=== PATIENT | female | born 1990 | race Caucasian/White ===

== ENCOUNTER 2020-02-21 16:17 | Emergency (ER) | payer MEDICAID ==
[2020-02-21] MEDS ORDERED: Sodium Chloride 0.9% 1000 ML 1,000 ML IV STA (16:34)
[2020-02-21] MEDS ORDERED: Zofran 4 MG/2 ML VIAL IV ONE (16:34)
[2020-02-21] MEDS ORDERED: TYLENOL 325 MG PO ONE (16:34)
[2020-02-21] MEDS ORDERED: Zofran 4 MG/2 ML VIAL ONE (16:38)
[2020-02-21] MEDS ORDERED: Sodium Chloride 0.9% 1000 ML 1,000 ML ONE (16:39)
[2020-02-21] MEDS ORDERED: TYLENOL 325 MG ONE (16:39)
--- NOTE | 2020-02-21 16:40 | ERPHSYRPT ---
- History of Present Illness Time Seen by Provider: 02/21/20 16:18 Source: patient Exam Limitations: no limitations Patient Subjective Stated Complaint: PT states "I have a horrible headache and my right side has been hurting for the past two day. Now I am nauseated." Triage Nursing Assessment: PT presented alert and oriented X 3, skin pwd. Pt am bulates with an upright steady gait, able to speak in clear full sentences. Pt holding her right flank. Physician History: Patient is here with right lower quadrant pain. Has been going on for 2 days. No falls no trauma. Patient states that she is unsure if she is or not. However, they are not trying to prevent at this point in time. She says been hurting all day. She did drive herself here. Location: RLQ pain Quality: sharp Radiation: into the rest of abdomen Severity: moderate Duration: yesterday Timing: gradual Modifying factors/associated signs and symptoms: No home test tried. Timing/Duration: yesterday Severity: moderate Modifying Factors: Improves With: eating Associated Symptoms: nausea, No vomiting Allergies/Adverse Reactions: No Known Drug Allergies Allergy (Verified 02/21/20 16:30) Hx Tetanus, Diphtheria Vaccination/Date Given: Yes Hx Influenza Vaccination/Date Given: No Hx Pneumococcal Vaccination/Date Given: No Immunizations Up to Date: Yes Travel Risk - International Travel Have you traveled outside of the country in past 3 weeks: No - Coronavirus Screening Are you exhibiting any of the following symptoms?: No Close contact with a COVID-19 positive Pt in past 14-21 Days: No - Review of Systems Constitutional: No Fever, No Chills Eyes: No Symptoms Ears, Nose, & Throat: No Symptoms Respiratory: No Cough, No Dyspnea Cardiac: No Chest Pain, No Edema, No Syncope Abdominal/Gastrointestinal: Abdominal Pain, Nausea, No Vomiting, No Diarrhea Genitourinary Symptoms: No Dysuria Musculoskeletal: No Back Pain, No Neck Pain Skin: No Rash Neurological: No Dizziness, No Focal Weakness, No Sensory Changes Psychological: No Symptoms Endocrine: No Symptoms All Other Systems: Reviewed and Negative - Past Medical History Pertinent Past Medical History: No - Past Surgical History Past Surgical History: No - Social History Smoking Status: Never smoker Exposure to second hand smoke: Yes Drug Use: none Patient Lives Alone: No - Female History Hx Last Menstrual Period: 02/12/2020 Hx Now: (unknown) - Nursing Vital Signs Nursing Vital Signs: Initial Vital Signs Temperature 98.5 F 02/21/20 16:25 Pulse Rate 66 02/21/20 16:25 Respiratory Rate 20 02/21/20 16:25 Blood Pressure 149/77 02/21/20 16:25 O2 Sat by Pulse Oximetry 100 02/21/20 16:25 Pain Scale Pain Intensity 5 - Physical Exam General Appearance: no apparent distress, alert Eye Exam: PERRL/EOMI, eyes nml inspection Ears, Nose, Throat Exam: normal ENT inspection, TMs normal, pharynx normal, moist mucous membranes Neck Exam: normal inspection, non-tender, supple, full range of motion Respiratory Exam: normal breath sounds, lungs clear, No respiratory distress Cardiovascular Exam: regular rate/rhythm, normal heart sounds, normal peripheral pulses Gastrointestinal/Abdomen Exam: soft, normal bowel sounds, tenderness, other (Right lower quadrant tenderness to palpation.), No mass Back Exam: normal inspection, normal range of motion, No CVA tenderness, No vertebral tenderness Extremity Exam: normal inspection, normal range of motion, pelvis stable Neurologic Exam: alert, oriented x 3, cooperative, normal mood/affect, nml cerebellar function, nml station & gait, sensation nml, No motor deficits Skin Exam: normal color, warm, dry, No rash Lymphatic Exam: No adenopathy SpO2: 100 - Course Nursing assessment & vital signs reviewed: Yes EKG Interpreted by Me: Sinus Rhythm (Sinus rhythm, rate of 160, QRS 91, QTc is 400. No obvious ST changes.) Ordered Tests: Active Orders 24 hr Category Date Time Status EKG-ER Only STAT Care 02/21/20 16:34 Active IV Insertion STAT Care 02/21/20 16:34 Active ABDOMEN AND PELVIS W CONTRAST [CT] Stat Exams 02/21/20 17:08 Taken CBC W DIFF Stat Lab 02/21/20 16:40 Completed CMP Stat Lab 02/21/20 16:40 Completed HCG QUALITATIVE,SERUM Stat Lab 02/21/20 16:40 Completed LIPASE Stat Lab 02/21/20 16:40 Completed UA W/RFX UR CULTURE Stat Lab 02/21/20 17:18 Ordered Medication Summary Discontinued Medications Generic Name Dose Route Start Last Admin Trade Name Freq PRN Reason Stop Dose Admin Acetaminophen 975 mg 02/21/20 16:34 02/21/20 16:43 Tylenol 325 Mg PO 02/21/20 16:35 975 mg STAT ONE Administration Acetaminophen Confirm 02/21/20 16:39 Tylenol 325 Mg Administered 02/21/20 16:40 Dose 975 mg .ROUTE .STK-MED ONE Sodium Chloride 1,000 mls @ 999 mls/hr 02/21/20 16:34 02/21/20 17:46 Sodium Chloride 0.9% 1000 Ml IV 02/21/20 17:34 Infused .Q1H1M STA Infusion Sodium Chloride Confirm 02/21/20 16:39 Sodium Chloride 0.9% 1000 Ml Administered 02/21/20 16:40 Dose 1,000 mls @ ud .ROUTE .STK-MED ONE Ondansetron HCl 4 mg 02/21/20 16:34 02/21/20 16:44 Zofran 4 Mg/2 Ml Vial IV 02/21/20 16:35 4 mg STAT ONE Administration Ondansetron HCl Confirm 02/21/20 16:38 Zofran 4 Mg/2 Ml Vial Administered 02/21/20 16:39 Dose 4 mg .ROUTE .STK-MED ONE Lab/Rad Data: Laboratory Result Diagrams 02/21/20 16:40 02/21/20 16:40 Laboratory Results 02/21/20 02/21/20 02/21/20 Range/Units 16:40 16:40 16:40 WBC 11.3 H (4.0-10.5) K/mm3 RBC 4.32 (4.1-5.4) M/mm3 Hgb 13.1 (12.0-16.0) gm/dl Hct 39.8 (35-47) % MCV 92.1 (78-100) fl MCH 30.3 (26-32) pg MCHC 32.9 (32-36) g/dl RDW 13.3 (11.5-14.0) % Plt Count 192 (150-450) K/mm3 MPV 11.7 H (7.5-11.0) fl Gran % 78.9 H (36.0-66.0) % Eos # (Auto) 0.14 (0-0.5) Absolute Lymphs (auto) 1.77 (1.0-4.6) Absolute Monos (auto) 0.45 (0.0-1.3) Lymphocytes % 15.7 L (24.0-44.0) % Monocytes % 4.0 (0.0-12.0) % Eosinophils % 1.2 (0.00-5.0) % Basophils % 0.2 (0.0-0.4) % Absolute Granulocytes 8.87 H (1.4-6.9) Basophils # 0.02 (0-0.4) Sodium 138 (137-145) mmol/L Potassium 4.3 (3.5-5.1) mmol/L Chloride 105 (98-107) mmol/L Carbon Dioxide 26 (22-30) mmol/L Anion Gap 11.1 (5-15) MEQ/L BUN 11 (7-17) mg/dL Creatinine 0.68 (0.52-1.04) mg/dL Estimated GFR > 60.0 ML/MIN Glucose 88 (74-106) mg/dL Calcium 9.5 (8.4-10.2) mg/dL Total Bilirubin 0.40 (0.2-1.3) mg/dL AST 25 (14-36) U/L ALT 15 (0-35) U/L Alkaline Phosphatase 78 (38-126) U/L Serum Total Protein 7.7 (6.3-8.2) g/dL Albumin 4.4 (3.5-5.0) g/dL Lipase 131 (23-300) U/L Serum , Qual NEGATIVE (Negative) - Progress Progress: improved Progress Note: 02/21/20 16:40 differential diagnosis includes kidney stone, compression fracture, infection, UTI, triple AAA - basic labs including: CBC, lipase, CMP, UA, test - insert IV for fluids, pain meds, nausea control - consider imaging: CT ab/pelvis, or U/S 02/21/20 18:[address] scan was obtained. This demonstrated no obvious appendicitis or other changes. Patient may have a left ovarian cyst. However, all of her pain is right-sided. I did discuss possible early appendicitis. She should return to the emergency department for increasing abdominal pain, nausea, vomiting. Also any new or changing symptoms. We will send her home with home Zofran. She should return here should her nausea not improve at any given time. Otherwise, follow-up with PCP for abdominal reexam in 24 to 48 hours. Counseled pt/family regarding: lab results, diagnosis, need for follow-up, rad results - Departure Departure Disposition: Extended Care Facility Clinical Impression: Nausea, Lower abdominal pain Condition: Stable Critical Care Time: No Referrals: INOCENTE OLIVER [Primary Care Provider] - CHADD READ MD [ACTIVE STAFF] - Instructions: [place] Diet Additional Instructions: Return for new or changing symptoms. Prescriptions: Ondansetron ODT 4 MG [Zofran Odt 4 mg] 4 mg PO Q6H PRN PRN #10 tab.rapdis PRN Reason: Vomiting
[2020-02-21 16:48] LABS: Absolute Neutrophil Ct (ANC) 8.87 (1.4-6.9); BASOPHIL % 0.2 % (0.0-0.4); Basophil (Absolute #) 0.02 (0-0.4); Eosinophil % 1.2 % (0.00-5.0); Eosinophil (Absolute #) 0.14 (0-0.5); Hematocrit 39.8 % (35-47); Hemoglobin 13.1 gm/dl (12.0-16.0); Lymphocyte (Absolute #) 1.77 (1.0-4.6); Lymphocytes % 15.7 % (24.0-44.0); Mean Cell Volume 92.1 fl (78-100); Mean Corpuscular Hemoglobin 30.3 pg (26-32); Mean Corpuscular Hgb Concent. 32.9 g/dl (32-36); Mean Platelet Volume 11.7 fl (7.5-11.0); Monocyte (Absolute #) 0.45 (0.0-1.3); Neutrophil % 78.9 % (36.0-66.0); Platelet Count 192 K/mm3 (150-450); Red Blood Count 4.32 M/mm3 (4.1-5.4); Red Cell Distribution Width 13.3 % (11.5-14.0); White Blood Count 11.3 K/mm3 (4.0-10.5)
[2020-02-21 17:00] LABS: ALBUMIN 4.4 g/dL (3.5-5.0); ALKALINE PHOSPHATASE 78 U/L (38-126); ANION GAP 11.1 MEQ/L (5-15); BLOOD UREA NITROGEN 11 mg/dL (7-17); CHLORIDE 105 mmol/L (98-107); Calcium 9.5 mg/dL (8.4-10.2); Carbon Dioxide 26 mmol/L (22-30); Creatinine 1 0.68 mg/dL (0.52-1.04); EST GLOMERULAR FILTRATION RATE > 60.0 ML/MIN; Glucose 88 mg/dL (74-106); LIPASE 131 U/L (23-300); Potassium 4.3 mmol/L (3.5-5.1); SGOT/AST 25 U/L (14-36); SGPT/ALT 15 U/L (0-35); SODIUM 138 mmol/L (137-145); Total Protein 7.7 g/dL (6.3-8.2)
[2020-02-21 18:15] VITALS: BP 120/85; PULSE 53; O2SAT 98
[2020-02-21 18:42] LABS: Appearance CLEAR (CLEAR); Bilirubin NEGATIVE (NEGATIVE); Blood NEGATIVE Ery/ul (0-5); Epithelial Cells RARE /HPF (FEW); Glucose NEGATIVE (NEGATIVE); Ketones NEGATIVE (NEGATIVE); Leukocyte Esterase NEGATIVE (NEGATIVE); Mucus SLIGHT /HPF (NEGATIVE); Nitrite NEGATIVE (NEGATIVE); Protein,Urine Dip NEGATIVE (Negative); Specific Gravity 1.023 (1.005-1.025); Urobilinogen 2 mg/dL (0-1)
--- NOTE | 2020-02-21 21:44 | XRAY ---
Indication: Right abdomen pain and nausea. Multiple contiguous axial images obtained through the abdomen and pelvis using 80 cc Isovue 370 contrast only. Comparison: None Lung bases are clear. Heart is not enlarged. Stomach is mildly distended with food/fluid. Noncontrasted stomach and bowel loops appear nonobstructed. Normal appendix. Small cul-de-sac fluid presumed physiologic from rupture/leaking cyst. 1.7 cm left ovary cyst. No walled off fluid collection or free air. Gallbladder contracted without gallstones. 8 mm right mid renal angiomyolipoma. Remaining liver, pancreas, spleen, adrenal glands, kidneys, ureters, bladder, uterus, and aorta appear unremarkable. No pathologic retroperitoneal lymphadenopathy. Osseous structures intact. No ventral or inguinal hernias. Impression: 1. 1.7 cm left ovary cyst with small physiologic cul-de-sac fluid. 2. Incidental subcentimeter right angiomyolipoma. 3. Remaining CT abdomen/pelvis with contrast exam is negative. Comment: Preliminary interpretation was made by [facility]. No critical discrepancy.
== END 2020-02-21 18:25 | disposition home or self-care (01) ==
LOC: ED 16:17
DX: R11.0 Nausea (principal); R10.9 Unspecified abdominal pain
CPT/HCPCS: 36000; 36415; 74177; 80053; 81001; 81025; 83690; 85025; 93005; 96360; 96374; 99284; J2405; A9270-GY

== ENCOUNTER 2024-05-08 07:55 | Emergency (ER) | payer OTHER ==
--- NOTE | 2024-05-08 08:01 | ERPHSYRPT ---
- History of Present Illness Time Seen by Provider: 05/08/24 08:01 Historian: patient Exam Limitations: no limitations Physician History: This is a 33-year-old white female patient who does not have any drug allergies and is not on any medication and presents by private vehicle secondary to sudden onset of left flank pain that radiates around into her left lower quadrant. She has never had any abdominal surgeries in the past. She has no known history of colitis or diverticulitis. She has no known history of nephrolithiasis or ureterolithiasis. She has never had this pain before. The patient is nauseated but did not vomit. She has no chest pain. She has no shortness of breath. She denies diarrhea Timing/Duration: today Activities at Onset: none Quality: aching, sharpness Abdominal Pain Onset Location: flank (Left flank) Pain Radiation: LLQ Severity of Pain-Max: moderate Severity of Pain-Current: moderate Modifying Factors: Improves With: nothing Associated Symptoms: loss of appetite, nausea, No chest pain, No fever/chills, No shortness of breath Previous symptoms: no prior history, no recent treatment Allergies/Adverse Reactions: No Known Drug Allergies Allergy (Verified 02/21/20 16:30) Home Medications: No Reportable Medications [No Reported Medications] 05/08/24 [History] Hx Tetanus, Diphtheria Vaccination/Date Given: Yes Hx Influenza Vaccination/Date Given: No Hx Pneumococcal Vaccination/Date Given: No Travel Risk - International Travel Have you traveled outside of the country in past 3 weeks: No - Emerging Infectious Disease Are you exhibiting symptoms associated with any current EIDs: No - Review of Systems Constitutional: No Symptoms Eyes: No Symptoms Ears, Nose, & Throat: No Symptoms Respiratory: No Symptoms Cardiac: No Symptoms Abdominal/Gastrointestinal: Abdominal Pain, Nausea Genitourinary Symptoms: Flank Pain (Left side), No Vaginal Bleeding, No Vaginal Discharge Musculoskeletal: No Symptoms Skin: No Symptoms Neurological: No Symptoms Psychological: No Symptoms Endocrine: No Symptoms Hematologic/Lymphatic: No Symptoms Immunological/Allergic: No Symptoms All Other Systems: Reviewed and Negative - Past Medical History Pertinent Past Medical History: No - Past Surgical History Past Surgical History: No - Social History Smoking Status: Never smoker Exposure to second hand smoke: Yes Drug Use: none Patient Lives Alone: No - Nursing Vital Signs Nursing Vital Signs: Initial Vital Signs Temperature 97.3 F 05/08/24 08:01 Pulse Rate 69 02/19/25 08:01 Respiratory Rate 22 05/08/24 08:01 Blood Pressure 163/75 05/08/24 08:01 O2 Sat by Pulse Oximetry 100 05/08/24 08:01 Pain Scale Pain Intensity 0 - Physical Exam General Appearance: no apparent distress, alert, anxiety Eye Exam: PERRL/EOMI, eyes nml inspection Ears, Nose, Throat Exam: normal ENT inspection, moist mucous membranes Neck Exam: normal inspection, non-tender, supple, full range of motion Respiratory Exam: normal breath sounds, lungs clear, airway intact, No chest tenderness, No respiratory distress Cardiovascular Exam: regular rate/rhythm, normal heart sounds, normal peripheral pulses Gastrointestinal/Abdomen Exam: soft, normal bowel sounds, tenderness (Left lower quadrant to palpation), guarding (Left lower quadrant to palpation), No rebound Pelvic Exam: not done Rectal Exam: not done Back Exam: normal inspection, normal range of motion, CVA tenderness (left) Extremity Exam: normal inspection, normal range of motion, pelvis stable Neurologic Exam: alert, oriented x 3, cooperative, telephone order clerk room service II-XII nml as tested, nml cerebellar function, nml station & gait, sensation nml Skin Exam: normal color, warm, dry Lymphatic Exam: No adenopathy SpO2 Interpretation: normal O2 Delivery: Room Air - Course Nursing assessment & vital signs reviewed: Yes Ordered Tests: Active Orders 24 hr Category Date Time Status IV Insertion STAT Care 05/08/24 08:18 Active ABDOMEN AND PELVIS W/0 CONTRAS [CT] Stat Exams 05/08/24 08:19 Completed AMYLASE Stat Lab 05/08/24 08:15 Completed CBC W DIFF Stat Lab 05/08/24 08:15 Completed CMP Stat Lab 05/08/24 08:15 Completed HCG QUALITATIVE, SERUM Stat Lab 05/08/24 08:15 Completed LIPASE Stat Lab 05/08/24 08:15 Completed UA W/RFX UR CULTURE Stat Lab 05/08/24 10:44 Completed Medication Summary Discontinued Medications Generic Name Dose Route Start Last Admin Trade Name Freq PRN Reason Stop Dose Admin Hydromorphone HCl 1 mg 05/08/24 08:18 05/08/24 08:25 Hydromorphone 1 Mg/1ml Inj IV 05/08/24 08:19 1 mg STAT ONE Administration Hydromorphone HCl Confirm 05/08/24 08:23 Hydromorphone 1 Mg/1ml Inj Administered 05/08/24 08:24 Dose 1 mg .ROUTE .STK-MED ONE Sodium Chloride 1,000 mls @ 999 mls/hr 05/08/24 08:18 05/08/24 10:12 Sodium Chloride 0.9% 1000 Ml IV 05/08/24 09:18 Infused .Q1H1M STA Infusion Sodium Chloride Confirm 05/08/24 08:23 Sodium Chloride 0.9% 1000 Ml Administered 05/08/24 08:24 Dose 1,000 mls @ ud .ROUTE .STK-MED ONE Ketorolac Tromethamine 30 mg 05/08/24 08:18 05/08/24 08:24 Ketorolac Tromethamine 30 Mg/Ml Inj IV 05/08/24 08:19 30 mg STAT ONE Administration Ketorolac Tromethamine Confirm 05/08/24 08:23 Ketorolac Tromethamine 30 Mg/Ml Inj Administered 05/08/24 08:24 Dose 30 mg .ROUTE .STK-MED ONE Ondansetron HCl 4 mg 05/08/24 08:18 05/08/24 08:25 Ondansetron Hcl 4 Mg/2 Ml Vial IV 05/08/24 08:19 4 mg STAT ONE Administration Ondansetron HCl Confirm 05/08/24 08:23 Ondansetron Hcl 4 Mg/2 Ml Vial Administered 05/08/24 08:24 Dose 4 mg .ROUTE .STK-MED ONE Lab/Rad Data: Laboratory Result Diagrams 05/08/24 08:15 05/08/24 08:15 Laboratory Results 05/08/24 05/08/24 05/08/24 Range/Units 10:44 08:15 08:15 WBC (3.98-10.04) x10^3/uL RBC (3.93-5.22) x10^6/uL Hgb (11.2-15.7) g/dL Hct (34.1-44.9) % MCV (79.4-94.8) fL MCH (25.6-32.2) pg MCHC (32.2-35.5) g/dL RDW (11.7-14.4) % Plt Count (182-369) x10^3/uL MPV (9.4-12.3) fL Gran % (34.0-71.1) % Immature Gran % (Auto) (0.001-0.429) % Nucleat RBC Rel Count (0.00-0.2) % Eos # (Auto) (0.04-0.36) x10^3/uL Immature Gran # (Auto) (0.001-0.031) x10^3u/L Absolute Lymphs (auto) (1.18-3.74) x10^3/uL Absolute Monos (auto) (0.24-0.86) x10^3/uL Absolute Nucleated RBC (0.00-0.012) x10^3u/L Lymphocytes % (19.3-51.7) % Monocytes % (4.7-12.5) % Eosinophils % (0.7-5.8) % Basophils % (0.1-1.2) % Absolute Granulocytes (1.56-6.13) x10^3/uL Basophils # (0.01-0.08) x10^3/uL Sodium 141 (135-145) mmol/L Potassium 4.1 (3.5-5.1) mmol/L Chloride 109 H (98-107) mmol/L Carbon Dioxide 20 L (22-30) mmol/L Anion Gap 16.0 H (5-15) MEQ/L BUN 16 (7-17) mg/dL Creatinine 0.72 (0.52-1.04) mg/dL Estimated GFR 112.5 ML/MIN Glucose 119 H (74-106) mg/dL Calcium 8.8 (8.4-10.2) mg/dL Total Bilirubin 0.50 (0.2-1.3) mg/dL AST 34 (14-36) U/L ALT 25 (0-35) U/L Alkaline Phosphatase 76 (38-126) U/L Serum Total Protein 7.2 (6.3-8.2) g/dL Albumin 4.3 (3.5-5.0) g/dL Amylase 84 (30-110) U/L Lipase 122 (23-300) U/L Serum HCG, Qual NEGATIVE (NEGATIVE) Urine Color Yellow (Yellow) Urine Appearance Clear (Clear) Urine pH 6.0 (4.6-8.0) Ur Specific [place] >=1.030 A (1.005-1.030) Urine Protein Negative (Negative) Urine Glucose (UA) Negative (Negative) mg/dL Urine Ketones Negative (Negative) Urine Blood Moderate A (Negative) Urine Nitrite Negative (Negative) Urine Bilirubin Negative (Negative) Urine Urobilinogen 0.2 (0.2) mg/dL Ur Leukocyte Esterase Negative (Negative) U Hyaline Cast (Auto) NONE SEEN (0-2) /LPF Urine Microscopic RBC 21-50 A (0-5) /HPF Urine Microscopic WBC 0-2 (0-5) /HPF Ur Epithelial Cells Rare (None Seen) /HPF Urine Bacteria None Seen (None Seen) /HPF Urine Culture Reflexed NO (NO) 05/08/24 Range/Units 08:15 WBC 4.8 (3.98-10.04) x10^3/uL RBC 3.87 L (3.93-5.22) x10^6/uL Hgb 11.4 (11.2-15.7) g/dL Hct 33.9 L (34.1-44.9) % MCV 87.6 (79.4-94.8) fL MCH 29.5 (25.6-32.2) pg MCHC 33.6 (32.2-35.5) g/dL RDW 12.9 (11.7-14.4) % Plt Count 199 (182-369) x10^3/uL MPV 11.0 (9.4-12.3) fL Gran % 59.9 (34.0-71.1) % Immature Gran % (Auto) 0.2 (0.001-0.429) % Nucleat RBC Rel Count 0.0 (0.00-0.2) % Eos # (Auto) 0.13 (0.04-0.36) x10^3/uL Immature Gran # (Auto) 0.01 (0.001-0.031) x10^3u/L Absolute Lymphs (auto) 1.56 (1.18-3.74) x10^3/uL Absolute Monos (auto) 0.19 L (0.24-0.86) x10^3/uL Absolute Nucleated RBC 0.00 (0.00-0.012) x10^3u/L Lymphocytes % 32.4 (19.3-51.7) % Monocytes % 4.0 L (4.7-12.5) % Eosinophils % 2.7 (0.7-5.8) % Basophils % 0.8 (0.1-1.2) % Absolute Granulocytes 2.88 (1.56-6.13) x10^3/uL Basophils # 0.04 (0.01-0.08) x10^3/uL Sodium (135-145) mmol/L Potassium (3.5-5.1) mmol/L Chloride (98-107) mmol/L Carbon Dioxide (22-30) mmol/L Anion Gap (5-15) MEQ/L BUN (7-17) mg/dL Creatinine (0.52-1.04) mg/dL Estimated GFR ML/MIN Glucose (74-106) mg/dL Calcium (8.4-10.2) mg/dL Total Bilirubin (0.2-1.3) mg/dL AST (14-36) U/L ALT (0-35) U/L Alkaline Phosphatase (38-126) U/L Serum Total Protein (6.3-8.2) g/dL Albumin (3.5-5.0) g/dL Amylase (30-110) U/L Lipase (23-300) U/L Serum HCG, Qual (NEGATIVE) Urine Color (Yellow) Urine Appearance (Clear) Urine pH (4.6-8.0) Ur Specific [place] (1.005-1.030) Urine Protein (Negative) Urine Glucose (UA) (Negative) mg/dL Urine Ketones (Negative) Urine Blood (Negative) Urine Nitrite (Negative) Urine Bilirubin (Negative) Urine Urobilinogen (0.2) mg/dL Ur Leukocyte Esterase (Negative) U Hyaline Cast (Auto) (0-2) /LPF Urine Microscopic RBC (0-5) /HPF Urine Microscopic WBC (0-5) /HPF Ur Epithelial Cells (None Seen) /HPF Urine Bacteria (None Seen) /HPF Urine Culture Reflexed (NO) - Progress Progress: improved, pain not gone completely Progress Note: 05/08/24 08:29 My medical decision making and the assignment of moderate complexity is based on review of the patient's past medical history, review of the patient's medication list, reviewed patient drug allergy list, history present illness and physical findings on examination. The workup and the patient is placement of intravenous line, infusion of crystalloid solution, infusion of Zofran, infusion of Toradol IV, infusion of Dilaudid, CBC, CMP, amylase, lipase, urinalysis, serum test, and CT scan of the abdomen pelvis without contrast. Differential diagnosis includes but is not limited to pancreatitis, colitis, diverticulitis, ureterolithiasis, pyelonephritis 05/08/24 10:09 The urinalysis is pending. The remainder of the laboratory data results were interpreted by me and there are no acute, emergent medical issues. The CT scan of the abdomen pelvis without contrast was interpreted by the radiologist and I reviewed the impression. The impression states no renal ca lculus or evidence of obstructive uropathy. There is a normal appendix. There is mild fecal stasis. There is stable subcentimeter right renal angiomyolipoma when compared to similar study dated 02/21/2020. 05/08/24 10:59 I interpreted the urinalysis. The patient is currently on her menstrual period. The patient does have blood in her urine and this is likely the cause of the blood in her urine specimen. She does not have a urinary tract infection. Counseled pt/family regarding: lab results, diagnosis, rad results Medical Desision Making - Risk of complications Low Risk: Low risk of morbidity from additional dx testing or treatment - Departure Departure Disposition: Home Clinical Impression: Left flank pain Condition: Stable Critical Care Time: No Referrals: ADELINE NOVA NP [Primary Care Provider] - Follow up/PCP as directed Additional Instructions: Drink plenty of fluids. Use Tylenol and ibuprofen for pain control if there are no contraindications. Call your primary care provider today, to 2024, to make arrangements for follow-up appointment for further evaluation and management.
[2024-05-08 08:05] VITALS: TEMP 97.3
[2024-05-08] MEDS ORDERED: TORAdol 30 mg Injection ONE (08:23)
[2024-05-08] MEDS ORDERED: Hydromorphone 1 mg/ml Injection ONE (08:23)
[2024-05-08] MEDS ORDERED: Zofran 4 MG/2 ML VIAL ONE (08:23)
[2024-05-08] MEDS ORDERED: Sodium Chloride 0.9% 1000 ML 1,000 ML ONE (08:23)
[2024-05-08] MEDS: TORAdol 30 mg Injection IV ONE (08:24)
[2024-05-08] MEDS: Sodium Chloride 0.9% 1000 ML 1,000 ML IV STA (08:24)
[2024-05-08] MEDS: Zofran 4 MG/2 ML VIAL IV ONE (08:25)
[2024-05-08] MEDS: Hydromorphone 1 mg/ml Injection IV ONE (08:25)
[2024-05-08 08:29] LABS: Absolute Neutrophil Ct (ANC) 2.88 x10^3/uL (1.56-6.13); BASOPHIL % 0.8 % (0.1-1.2); Basophil (Absolute #) 0.04 x10^3/uL (0.01-0.08); Eosinophil % 2.7 % (0.7-5.8); Eosinophil (Absolute #) 0.13 x10^3/uL (0.04-0.36); Hematocrit 33.9 % (34.1-44.9); Hemoglobin 11.4 g/dL (11.2-15.7); IMMATURE GRAN # 0.01 x10^3u/L (0.001-0.031); IMMATURE GRAN % 0.2 % (0.001-0.429); Lymphocyte (Absolute #) 1.56 x10^3/uL (1.18-3.74); Lymphocytes % 32.4 % (19.3-51.7); Mean Cell Volume 87.6 fL (79.4-94.8); Mean Corpuscular Hemoglobin 29.5 pg (25.6-32.2); Mean Corpuscular Hgb Concent. 33.6 g/dL (32.2-35.5); Monocyte (Absolute #) 0.19 x10^3/uL (0.24-0.86); Neutrophil % 59.9 % (34.0-71.1); Platelet Count 199 x10^3/uL (182-369); Red Blood Count 3.87 x10^6/uL (3.93-5.22); Red Cell Distribution Width 12.9 % (11.7-14.4); White Blood Count 4.8 x10^3/uL (3.98-10.04)
[2024-05-08 08:41] LABS: HCG SERUM TEST NEGATIVE (NEGATIVE)
[2024-05-08 08:43] LABS: ALBUMIN 4.3 g/dL (3.5-5.0); BILIRUBIN,TOTAL 0.5 mg/dL (0.2-1.3); Calcium 8.8 mg/dL (8.4-10.2); Creatinine 1 0.72 mg/dL (0.52-1.04); EST GLOMERULAR FILTRATION RATE 112.5 ML/MIN; Potassium 4.1 mmol/L (3.5-5.1); Total Protein 7.2 g/dL (6.3-8.2)
--- NOTE | 2024-05-08 09:50 | XRAY ---
Indication: Left flank pain. Multiple contiguous axial images obtained through the abdomen and pelvis without contrast using renal stone protocol. Comparison: February 21, 2020 Lung bases remain clear. Heart not enlarged. No renal calculus or evidence for obstructive uropathy in either system. Stomach distended with food/fluid. Noncontrasted stomach and bowel loops appear nonobstructed with normal appendix. New mild diffuse scattered colonic fecal debris. Stable 9 mm right mid renal angiomyolipoma. Again small cul-de-sac fluid presumed physiologic from rupture/leaking cyst. No free air. Remaining liver, gallbladder, pancreas, spleen, adrenal glands, kidneys, ureters, bladder, uterus, and aorta are unremarkable for noncontrast exam. Osseous structures intact. Impression: 1. Continued negative renal calculus or evidence for obstructive uropathy. 2. New mild diffuse fecal stasis. 3. Again small cul-de-sac fluid presumed physiologic. 4. Stable incidental subcentimeter right renal angiomyolipoma.
[2024-05-08 10:46] VITALS: BP 106/61; PULSE 53; RESP 13; O2SAT 100
[2024-05-08 10:49] LABS: Appearance Clear (Clear); Bacteria None Seen /HPF (None Seen); Bilirubin Negative (Negative); Blood Moderate (Negative); Epithelial Cells Rare /HPF (None Seen); Glucose, Urine Negative (Negative); Hyaline Casts NONE SEEN /LPF (0-2); Ketones Negative (Negative); Leukocyte Esterase Negative (Negative); Nitrite Negative (Negative); Protein,Urine Dip Negative (Negative); RBC 21-50 /HPF (0-5); Specific Gravity >=1.030 (1.005-1.030); Urobilinogen 0.2 mg/dL (0.2); WBC 0-2 /HPF (0-5)
== END 2024-05-08 11:29 | disposition home or self-care (01) ==
LOC: ED 07:55
DX: R10.32 Left lower quadrant pain (principal); R10.9 Unspecified abdominal pain; R11.0 Nausea
CPT/HCPCS: 36415; 74176; 80053; 81001; 82150; 83690; 84703; 85025; 96361; 96374; 96375; 99284; J1171; J1885; J2405